=== PATIENT | female | born 1945 | race Caucasian/White ===

== ENCOUNTER → 2017-07-16 | Outpatient (CLI) | payer MEDICARE, OTHER ==
[~2017-07-16] MED LIST: ASPIRIN 81M81 MG/TA2 PO; ASPIRIN E.C. 8181 MG PO; B-121000 MCG PO; BACTRIM DS 8001 TAB PO; BYSTOLIC2.5 MG PO; BYSTOLIC20 MG PO; CALCIUM 600600 M2 PO; CALCIUM600 MG PO; CARDI-OMEGA1000 MG PO; CHONDROITIN COM1 CAP PO; DETROL LA4 PO; FE-TABS325 MG PO; FERROUS SULFATE65 MG PO; FIBRO-XL1 CAP PO; FISH OIL1000 MG PO; FOLIC ACID 40400 MCG PO; FOLIC ACID0.4 MG PO; GLUCOSAMINE & C1 CA1 PO; GLUCOSAMINE & C1 TER PO; GLUCOSAMINE 50500 MG PO; HORMONE INJECTION; HYZAAR 25 MG-101 TAB PO; KLOR-CON M2020 MEQ PO; LASIX 20MG TABL20 MG PO; LEXAPRO 10MG10 MG PO; LEXAPRO10 MG PO; MULTIPLE VITAMI1 CAP PO; MULTIPLE VITAMI1 TAB PO; NEXIUM 40MG40 MG PO; NORCO 325 MG-51 TAB PO; NORVASC 5MG5 MG/TAB PO; PATADAY 2.5 ML2.5 ML OU; PRILOSEC 20MG20 MG PO; PSYLLIUM PO; STOOL SOFTENER100 M2 PO; SYSTANE LUBRICAN5 ML OP; SYSTANE OU; SYSTANE ULTRA 010 ML OP; THERAPEUTIC VIT1 CAP PO; TOPCARE ASPIRIN81 M1 PO; TYLENOL 325MG325 MG PO; TYLENOL 500MG500 MG PO; TYLENOL ARTHRI650 M1 PO; TYLENOL ARTHRITIS PO; VITAMIN C PO; VITAMIN C500 MG PO; ZOCOR 20MG20 MG PO; ZOCOR20 MG PO; ZYRTEC 10MG10 MG PO; ZYRTEC10 M1 PO
== END ==
LOC: COL.RAD 10:18
DX: G45.0 Vertebro-basilar artery syndrome (principal)
CPT/HCPCS: Q9967

== ENCOUNTER → 2017-10-27 | Outpatient (CLI) | payer MEDICARE, OTHER ==
[~2017-10-27] MED LIST changes: +ALDACTONE 25MG25 M1 PO; +CALCIUM CARBON650 M2 PO; -CALCIUM600 MG PO; +FLONASE NASAL S16 GM NS; +[UNRECOGNIZED DRUG - OTHER] OU
== END ==
LOC: MC.RAD 10:11
DX: Z12.31 Encounter for screening mammogram for malignant neoplasm of breast (principal)

== ENCOUNTER → 2018-11-14 | Outpatient (CLI) | payer MEDICARE, BC | LOC: MC.RAD 09:57 | DX: Z12.31 Encounter for screening mammogram for malignant neoplasm of breast (principal) ==

== ENCOUNTER → 2019-04-03 | Outpatient (CLI) | payer MEDICARE, BC | LOC: COL.RAD 09:31 | DX: K82.8 Other specified diseases of gallbladder (principal); K76.0 Fatty (change of) liver, not elsewhere classified; N20.0 Calculus of kidney; K57.30 Diverticulosis of large intestine without perforation or abscess without bleeding | CPT/HCPCS: Q9967 ==

== ENCOUNTER 2020-10-28 11:18 | Emergency (ER) | payer MEDICARE, BC ==
[~2020-10-28] VITALS: Ht 157.5 cm; Wt 79.5 kg
[2020-10-28 11:24] VITALS: TEMP 98.8
[2020-10-28 12:25] LABS: BASO # 0.1 (0.0-0.2); BASO % 0.5 % (0.0-2.0); EOS # 0.1 (0.0-0.7); EOS % 0.5 % (0-4.0); GRAN # 7.1 (1.4-6.5); GRAN % 66.1 % (42.2-75.2); HEMATOCRIT 37.6 % (37.0-47.0); HEMOGLOBIN 12.6 g/dl (12.5-16.0); LYMPH # 2.5 (1.2-3.4); LYMPH % 23.7 % (20.0-51.0); MEAN CELL VOLUME 96 fl (80.0-100.0); MEAN CORPUSCULAR HEMOGLOBIN 32 pg (27.0-31.0); MEAN CORPUSCULAR HGB CONC 34 g/dl (33.0-37.0); MEAN PLATELET VOLUME 10.4 fl (7.4-10.4); MONO # 0.9 (0.1-0.6); MONO % 8.8 % (1.7-9.3); PLATELET COUNT 299 K/mm3 (130-400); REDCELL DISTRIBUTION WIDTH-CV 13.4 % (11.5-14.5)
[2020-10-28 12:41] LABS: ALBUMIN 4.2 gm/dL (3.5-5.0); BILIRUBIN,TOTAL 0.5 mg/dL (0.0-1.0); CALCIUM 11.2 mg/dL (8.4-10.2); CREATININE, serum 0.67 (0.52-1.25); POTASSIUM 3.8 mmol/L (3.4-5.0); TOTAL PROTEIN 7.9 gm/dL (6.4-8.2)
[2020-10-28] MEDS ORDERED: NORCO 325 MG-51 TAB PO (13:57)
[2020-10-28 14:10] VITALS: BP 135/86; PULSE 59
== END 2020-10-28 14:10 | disposition home or self-care (01) ==
LOC: COL.ER 11:18
PROVIDERS: Family Medicine
DX: E83.52 Hypercalcemia (principal); Z90.710 Acquired absence of both cervix and uterus; Z88.0 Allergy status to penicillin; Z88.1 Allergy status to other antibiotic agents; Z88.2 Allergy status to sulfonamides; Z88.5 Allergy status to narcotic agent; Z79.82 Long term (current) use of aspirin

== ENCOUNTER 2021-03-14 17:53 | Emergency (ER) | payer MEDICARE, BC ==
[~2021-03-14] VITALS: Ht 154.9 cm; Wt 80.9 kg
[2021-03-14 17:59] VITALS: TEMP 97.8
[2021-03-14 20:29] VITALS: BP 160/78; PULSE 65
[2021-03-14] MEDS ORDERED: DOXYCYCLINE 10100 MG PO (20:33)
== END 2021-03-14 20:50 | disposition home or self-care (01) ==
LOC: COL.ER 17:53
DX: S02.31XA Fracture of orbital floor, right side, initial encounter for closed fracture (principal); I10 Essential (primary) hypertension; Z88.0 Allergy status to penicillin; Z88.1 Allergy status to other antibiotic agents; Z88.2 Allergy status to sulfonamides; Z88.5 Allergy status to narcotic agent; Z79.899 Other long term (current) drug therapy; W01.198A Fall on same level from slipping, tripping and stumbling with subsequent striking against other object, initial encounter; Y92.017 Garden or yard in single-family (private) house as the place of occurrence of the external cause